=== PATIENT | male | born 1970 | race Caucasian/White ===

== ENCOUNTER 2024-11-10 16:01 | Emergency (ER) | payer BC, SELFPAY ==
--- NOTE | ~2024-11-10 | XR_ITS ---
EXAMINATION: XR toe 3rd LT min 2V DATE: 11/10/2024 16:48 INDICATION: Injury, laceration plantar phalanx TECHNIQUE: 5 images of the left toes were obtained. COMPARISON: None FINDINGS: The second toe is absent. Soft tissue swelling about the toes. No radiopaque foreign body identified. 7 mm ossific density along the lateral aspect of the head of the third metatarsal possibly due to a f racture of indeterminate age. Possible subluxation of the third metatarsophalangeal joint. Moderate narrowing of the third middle tarsophalangeal joint. IMPRESSION: There is a 7 mm ossific density along the lateral aspect of the head of the third metatarsal possibly due to a fracture of indeterminate age. Correlate for point tenderness. Possible subluxation of the third metatarsophalangeal joint. Moderate narrowing of the third middle tarsophalangeal joint. If symptoms persist or worsen, consider a CT or MRI for further assessment. Reviewed, dictated and finalized at location A. IMPRESSION: There is a 7 mm ossific density along the lateral aspect of the head of the thi rd metatarsal possibly due to a fracture of indeterminate age. Correlate for po int tenderness. Possible subluxation of the third metatarsophalangeal joint. Moderate narrowing of the third middle tarsophalangeal joint. If symptoms persist or worsen, consider a CT or MRI for further assessment.
--- OUTSIDE RECORDS SUMMARY | 2024-11-10 16:13 | XMS_ITS | Clinical Summary ---
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 01/05/2023 Active diphenhydrAMINE (Benadryl Allergy) 25 MG tablet Take 25 mg by mouth every 8 (eight) hours if needed. Active ibuprofen 800 MG tablet Take 800 mg by mouth every 8 (eight) hours if needed. Active losartan (Cozaar) 100 MG tablet Take 100 mg by mouth 1 (one) time each day. Active nebivolol (Bystolic) 20 MG tablet Take 20 mg by mouth 1 (one) time each day. Active omeprazole (PriLOSEC) [address] capsule Take 20 mg by mouth 1 (one) time each day before breakfast. Active pregabalin (Lyrica) 300 MG capsule Take 300 mg by mouth 2 (two) times a day. 07/14/2023 Active Ozempic, 0.25 or 0.5 MG/DOSE, 2 MG/3ML solution pen-injector 09/10/2023 Active Zoloft 50 MG tablet Take 50 mg by mouth 1 (one) time each day. Active DULoxetine (Cymbalta) [address] capsuleIndicati ons:Peripheral neuropathy Take 1 capsule (30 mg total) by mouth 1 (one) time each day for 30 days, THEN 2 capsules (60 mg total) 1 (one) time each day. Do not crush or chew.. 150 capsule 10/15/2023 Active EPINEPHrine (Epipen) 0.3 MG/0.3ML injection syringe Inject 1 Syringe as directed if needed for anaphylaxis. 11/20/2023 Active Active Problems Problem Noted Date Diagnosed Date Diabetes mellitus 10/15/2023 Hypertension 10/15/2023 Neuropathy 10/15/2023 Immunizations Immunization Administration Dates Next Due TD (adult), 2 Lf tetanus tox oid, preservative free, adsorbed 09/25/2022 Social History Tobacco Use Types Packs/Day Years Used Date Smoking Tobacco: Former Cigarettes Smokeless Tobacco: Never Tobacco Cessation:Counseling Given: Not Answered Alcohol Use Standard Drinks/Week Comments Not Currently 0 (1 standard drink = 0.6 oz pur e alcohol) Sex and Gender Information Value Date Recorded Sex Assigned at Not on file Legal Sex Male 3:45 PM EDT Gender Identity Not on file Sexual Orientation Straight 10/14/2023 6 :00 PM EDT Last Filed Vital Signs Vital Sign Reading Time Taken Comments Blood Pressure 130/80 10/15/2023 1:44 PM EDT Pulse 107 10/15/2023 1:44 PM EDT Temperature - - Respiratory Rate - - Oxygen Saturation - - Inhaled Oxygen Concentration - - Weight 152 kg (335 lb) 10/15/2023 1:44 PM EDT Height 190.5 cm (6' 3) 10/15/2023 1:44 PM EDT Body Mass Index 41.87 10/15/2023 1:44 PM EDT Plan of Treatment Health Maintenance Due Date Last Done Comments CT Colonography 1972 Colonoscopy 1972 Colorectal Cancer Screening 1972 Diabetes: Hemoglobin A1C 1972 FIT-DNA (Cologuard) 1972 FIT 1972 FOBT 1972 HIV Screening 1972 Hepatitis C Screening 1972 Lipid Panel 1972 Sigmoidoscopy 1972 MMR Vaccines (1 of 1 - Standard series) 02/24/1973 Diabetes: Foot Exam 02/24/1982 Diabetes: Retinopathy Screening 02/24/1982 Hepatitis B Screening 02/24/1990 Diabetes: Urine Protein Screening 02/24/1991 Hepatitis B Vaccines (1 of 3 - 19+ 3-dose series) 02/24/1991 Pneumococcal Vaccine: 50+ Years (1 of 2 - PCV) 02/24/1991 Zoster Vaccines (1 of 2) 02/24/2022 DTaP/Tdap/Td Vaccines (1 - Tdap) 09/26/2022 09/25/2022 COVID-19 Vaccine (3 - 2023-2 5 season) 2023 08/28/2020, 07/31/2020 Depression Risk Screening 03/26/2024 SDOH Screening 03/26/2024 Influenza Vaccine (#1) 2024 HIB Vaccines Aged Out No longer eligi ble based on patient's age to complete this topic HPV Vaccines Aged Out No longer eligi ble based on patient's age to complete this topic Hepatitis A Vaccines Aged Out No long er eligible based on patient's age to complete this topic IPV Vaccines Aged Out No longer eligi ble based on patient's age to complete this topic Meningococcal B Vaccine Aged Out No l onger eligible based on patient's age to complete this topic Meningococcal Vaccine Aged Out No zenaida mukul eligible based on patient's age to complete this topic Rotavirus Vaccines Aged Out No longer eligible based on patient's age to complete this topic Insurance ANTHEM Care Teams Distillery Worker General Relationship Specialty Start Date End Date Melody Dey SENIOR BI ARCHITECT [address] [place] [address] [place] [phone] PCP - General 07/02/23
--- OUTSIDE RECORDS SUMMARY | 2024-11-10 16:13 | XMS_ITS | Patient Health Record ---
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 Melody Myers Primary Care Provider Unavailabl e MELODY MYERS Unavailable [phone] HERNANDEZANGELINE Unavailable [phone] June Unavailable [phone] Allergies No Known Allergies Results Component Value Reference Range Notes PSA, Screen Reviewed date:05/02/2024 03:32:28 PM Interpretation: Performing Lab:[facility], L Notes/Report: PSA,SCREEN 0.9 0-4.0 ng/mL [facility] Test Reviewed date:05/05/2024 04:12:17 PM Interpretation: Performing Lab:[facility], L Notes/Report: SYPHILIS TREP AB W/RFLX TO RPR TITER TC: [id number] [place] TEST SYPHILIS TREP AB W/R [facility] LAB TEST NAME RESULT SEE SEPARATE REPORT Microalbumin-Random Urine Reviewed date:05/05/2024 04:26:32 PM Interpretation: Performing Lab:[facility], L Notes/Report: Has Specimen Been Collected Y MICROALBUMIN,URINE 4.7 0-1.9 mg/dL CREATININE,URINE 208.5 MICROALBUMIN/CREATININE RATIO 23 0-30 ug/mg Lipid Profile Reviewed date:05/02/2024 02:47:36 PM Interpretation: Performing Lab:[facility], L Notes/Report: CHOLESTEROL 163 100-199 mg/dL Is the Patient Fasting YES TRIGLYCERIDES 93 0-149 mg/dL Is the Patient Fasting YES DIRECT HDL CHOLESTEROL 31 >39 mg/dL Is th e Patient Fasting YES CALCULATED LDL CHOLESTEROL 113 0-99 mg/dL VLDL CHOLESTEROL 19 5-40 mg/dL The above lipid reference ranges are based on the most recently published guidelines from the National Heart, Lung, and Blood [place] (NHLBI). Hemoglobin A1C Reviewed date:05/05/2024 01:15:58 PM Interpretation: Performing Lab:[facility], L Notes/Report: HEMOGLOBIN A1C 5.7 4.0-6.0 % CMP Reviewed date:05/02/2024 02:47:48 PM Interpretation: Performing Lab:[facility], L Notes/Report: GLUCOSE 90 74-118 mg/dL BLOOD UREA NITROGEN 10 8-26 mg/dL CREATININE 0.74 0.60-1.30 mg/dL ESTIMATED GFR > 60 SODIUM 139 136-144 mmol/L POTASSIUM 4.1 3.6-5.1 mmol/L CHLORIDE 104 96-110 mmol/L CARBON DIOXIDE 27 22-32 mmol/L ANION GAP 8 2-11 mmol/L CALCIUM 9.0 8.4-10.3 mg/dL TOTAL PROTEIN 7.4 6.4-8.3 g/dL ALBUMIN 4.4 3.5-5.0 g/dL BILIRUBIN,TOTAL 0.8 0.3-1.0 mg/dL ASPARTATE AMINOTRANSFERASE/AST 16 13-39 U/L ALANINE AMINOTRANSFERASE/ALT 24 7-52 IU/L ALKALINE PHOSPHATASE 100 34-104 IU/L CBC w/ diff Reviewed date:05/02/2024 02:48:00 PM Interpretation: Performing Lab:[facility], L Notes/Report: WHITE BLOOD COUNT 8.20 4.30-10.30 THOU/uL RED BLOOD COUNT 4.81 4.04-6.13 MILL/uL HEMOGLOBIN 14.6 14.0-18.0 g/dL HEMATOCRIT 41.6 42-52 % MEAN CORPUSCULAR VOLUME 86.6 81-99 fL MEAN CORPUSCULAR HEMOGLOBIN 30.3 27.0-31.2 pg MEAN CORPUSCULAR HGB CONC 35.0 31.8-35.4 g/dL RED CELL DISTRIBUTION WIDTH 15.1 11.6-14.8 % PLATELET COUNT 288 142-424 THOU/uL MEAN PLATELET VOLUME 8.9 5.0-10.0 fL NEUTROPHILS % 62.7 37.0-80.0 % LYMPH % 28.6 10.0-50.0 % MONO % 6.4 0.0-12.0 % EOS % 1.8 0.0-7.0 % BASO % 0.5 0.0-2.5 % NEUTROPHILS #, ABS. 5.20 1.60-6.90 THOU/uL LYMPH #, ABS. 2.40 0.60-3.40 THOU/uL MONO #, ABS. 0.50 0.00-0.90 THOU/uL EOS #, ABS. 0.10 0.00-0.70 THOU/uL BASO #, ABS. 0.00 0.00-0.20 THOU/uL RAD Toe Right 2nd Digit 7366 0 Reviewed date:12/27/2023 08:19:58 AM Interpretation: Performing Lab: Notes/Report: [address] [address] NAME: ELLY Bree HERNANDEZ DATE: 12/17/23 PHYSICIAN: ANGELINE HERNANDEZ MD [facility] [id number] DATE OF : 1970 ACCT NUMBER: [id number] PT LOCATION: [facility] DATE OF SERVICE: 12/17/23 RIGHT SECOND TOE - 12-17-2023 COMPARISON: 10-18-2023 INDICATION: Open wound to right second digit. Prior amputation at the level of the first proximal phalanx. TECHNIQUE: Dedicated three views of the right second toe. FINDINGS: There is diffuse soft tissue swelling. There is no acute fracture or dislocation or destructive change. There is an old amputation at the level of the first proximal phalanx which is smooth. IMPRESSION: 1. Soft tissue swelling of the second toe without underlying acute or destructive osseous lesion. 2. Old amputation at the level of the first proximal phalanx. MRI could [place] [id number] <Electronically signed by VANE BRUNNER > VANE BRUNNER , Radiologist Signed: 12/18/23 0841 Reason For Referral Reason 53yo male with signi ficant neuropathy. Please eval for nail care. Has had L 2nd toe amputation, R partial hallux amputation, and currently an open wound on R 2nd toe. May need fitted for special toe box and nail care, please. Diagnosis 1 Type 2 diabetes deanna itus without complication, without long-term current use of insulin (E11.9) Diagnosis 2 Obesity, Class III, BMI 40-49.9 (morbid obesity) (E66.01) Diagnosis 3 Other polyneuropathy (G62.89) Diagnosis 4 Toe osteomyelitis (M 86.9) Diagnosis 5 Peripheral polyneuro heber (G62.9) Referral Organization [facility] Referring Provider First Name ANGELINE Referring Provider Last Name MARY Referring Provider Speciality General Lou luisa Referred Provider Kashif Kat Referred Provider Specialty Podiatry Referral Priority Routine Reason Nov 18 or Diagnosis 1 Type 2 diabetes deanna itus without complication, without long-term current use of insulin (E11.9) Referral Organization [facility] Referring Provider First Name MELODY Referring Provider Last Name LUCIA Referring Provider Speciality Nurse Nabeel caldwell Referred Provider Beny Mitchell Referred Provider Specialty Endocrinolog y Referral Priority Routine Medications Medication SIG (Take, Route, Frequency, Duration) Notes Start Date End Date Status predniSONE 5 MG 1 tablet twice daily x 3 days then 1 tablet daily x 4 days Orally as directed; Duration: 7 days 09/25/2024 Active Ibuprofen 800 MG 1 tablet with food or milk as needed Orally Three times a day; Duration: 90 days 08/02/2020 Active levoFLOXacin 750 MG 1 tablet Orally Once a day; Duration: 7 days 12/03/2023 Not-Taking Nebivolol HCl 20 MG 1 tablet Orally Once a day; Duration: 90 days Active Sertraline HCl 50 MG TAKE 1 TABLET BY MOUTH ONCE DAILY MAY CAUSE DROWSINESS Orally Once a day; Duration: 90 days prn per patient Active Omeprazole 20 MG TAKE 1 CAPSULE ONCE DAILY FOR STOMACH; Duration: 30 Active Collagenase 250 UNIT/GM 1 application Externally Twice a day; Duration: 30 days 05/07/2023 Not-Taking levoFLOXacin 750 MG 1 tablet Orally Once a day Not-Taking HYDROcodone-Acetaminop hen 5-325 MG 1 tablet as needed Orally every 6 hrs Not-Taking Ozempic (0.25 or 0.5 MG/DOSE) 2 MG/3ML INJECT 0.5 MG UNDER THE SKIN ONCE WEEKLY subcut weekly; Duration: 28 days Active Linezolid 600 MG 1 tablet Orally every 12 hrs; Duration: 10 days 04/12/2023 Not-Taking rifAMPin 300 MG as directed Orally Twice a day; Duration: 72 days 04/30/2023 Not-Taking Allopurinol 100 MG 1 tab Orally as needed; Duration: 30 days Not-Taking Vitamin B Complex - 1 tablet Orally once daily OTC 05/12/2021 Not-Taking Victoza 18 MG/3ML 0.6mg Subcutaneous daily; Duration: 30 days 04/09/2023 Not-Taking Pregabalin 300 MG 1 capsule Orally two to three times daily as needed; Duration: 30 days Dennis mad, CS in place 09/08/2024 Active Linezolid 600 MG 1 tablet Orally every 12 hrs; Duration: 72 days 04/30/2023 Not-Taking Dakins (full strength) 0.5 % 1 application Externally Twice a day; Duration: 30 days 04/30/2023 Not-Taking amLODIPine Besylate 10 MG 1 tablet Orally Once a day; Duration: 90 days Active Cyanocobalamin 1000 MCG 1 tablet Orally Once a day; Duration: 30 day(s) Active DHEA 50 MG 2 tablets Orally once daily OTC 05/12/2021 Not-Taking Benadryl Allergy 25 MG 1 capsule at bedtime as needed Orally Once a day Active Berberine 500mg 1 tab Orally twice a day 06/16/2022 Not-Taking Losartan Potassium 100 MG TAKE 1 TABLET EVERY DAY FOR BLOOD PRESSURE Orally Once a day; Duration: 90 days Active Promethazine HCl 25 MG 1 tablet as neede d Orally every 12 hrs; Duration: 15 days 05/26/2022 Active Cholecalciferol 2000 UNIT 1 capsule Orally Once a day; Duration: 30 day(s) Not-Taking Immunizations Vaccine Route Administration Date Status Comme nts Td (adult), absorbed IM Intramuscular 09/25/2022 Administe red Problems Problem Type SNOMED Code ICD Code Onset Dates Problem Status W/U Status Risk Notes Problem Hypertension (64321775) Hypertension (I10) Active confirmed Problem Peripheral vascular disease (596233258) PVD (Peripheral Vascular Disease) (I73.9) Active confirmed Problem Gastroesophageal reflux disease (655305463) GERD (K21.9) Active confirmed Problem Unstageable pressure injury of right heel (disorder) (14980497871804816 ) Pressure ulcer of right heel, unstageable (L89.610) Active confirmed Problem Gout (42715360) Gout (M10.9) Active confirmed Problem Traumatic amputation of toe OR toes without complication (32124734) 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 Pts AHI 12.6 with mild ADALI, pt states he never got it and really doesnt want to use it as is sleeping fine and feels good. 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) Active confirmed Problem Seasonal allergic rhinitis (187339555) Seasonal allergic rhinitis, unspecified trigger (J30.2) Active confirmed Problem Food allergy (939401299) Allergy to alpha-gal (Z91.018) Active confirmed Problem Body mass index 40+ - morbidly obese (945122185) BMI 40.0-44.9, adult (Z68.41) Active confirmed Problem Polyneuropathy (14759941) Other polyneuropathy (G62.89) Active confirmed Problem Neuropathic pain (finding) (403697157) Neuropathic pain of both feet (G57.93) Active confirmed Problem Inflammatory and toxic neuropathy (314047234) Peripheral polyneuropathy (G62.9) Active confirmed Problem Osteomyelitis (04571504) Osteomyelitis of left foot, unspecified type (M86.9) Active confirmed Problem Osteomyelitis (05355975) Toe osteomyelitis (M86.9) Active confirmed Problem Non-healing open wound of right heel, subsequent encounter (S91.301D) Active confirmed Vital Signs Heart Rate 95 /min 05/02/2024 13 lb gain Temperature 98.6 degrees Fahrenheit 05/02/2024 13 l b gain Respiratory Rate 20 /min 05/02/2024 13 lb gain Blood pressure diastolic 80 mm Hg 05/02/2024 13 lb gain Oximetry 98 % 05/02/2024 13 lb gain Height 75 in 05/02/2024 13 lb gain Blood pressure systolic 130 mm Hg 05/02/2024 13 l b gain Weight 338.4 lbs 05/02/2024 13 lb gain BMI 42.29 kg/m2 05/02/2024 13 lb gain Encounters Encounter Location Date Provider Diagnosis [facility] [address] [place] [address] [place] [address] 11/20/2023 ANGELINE HERNANDEZ Open wound of right foot, subsequent encounter S91.301D [facility] [address] [place] [address] 12/03/2023 ANGELINE HERNANDEZ Encounter for wound re-check Z51.89 ; Unspecified open wound, right foot, subsequent encounter S91.301D and Cellulitis of second toe of right foot L03.031 [facility] [address] [place] [address] 12/17/2023 ANGELINE HERNANDEZ Encounter for wound re-check Z51.89 ; Wound of right foot S91.301A and Cellulitis of toe of right foot L03.031 [facility] [address] [place] [address] 12/31/2023 ANGELINE HERNANDEZ Encounter for wound re-check Z51.89 [facility] [address] [place] [address] 05/02/[address] [facility] Type 2 diabetes mellitus without complication, without long-term current use of insulin E11.9 ; Hypertension I10 ; Peripheral polyneuropathy G62.9 ; Screening PSA (prostate specific antigen) Z12.5 ; Neuropathic pain of both feet G57.93 and Positive RPR test A53.0 [facility] [address] [place] [address] 11/19/[address] [facility] [address] [place] [address] 11/20/[address] [facility] [address] [place] [address] 12/04/[address] [facility] [address] [place] [address] 12/05/2023 [facility] [address] [place] [address] 12/28/2023June Neuropathic pain of both feet G57.93 [facility] [address] [place] [address] 04/25/[address] [facility] Neuropathic pain of both feet G57.93 [facility] [address] [place] [address] 09/08/[address] [facility] Neuropathic pain of both feet G57.93 [facility] [address] [place] [address] 09/24/[address] [facility] [address] [place] [address] 10/23/[address] [facility] Type 2 diabetes mellitus without complication, without long-term current use of insulin E11.9 [facility] [address] [place] [address] 10/23/[address] [facility] Type 2 diabetes mellitus without complication, without long-term current use of insulin E11.9 Assessments Encounter Date Diagnosis (ICD Code) Assessment Notes Treatment Notes Treatment Clinical Notes Section Notes 11/20/2023 Open wound of right foot, subsequent encounter (ICD-10 - S91.301D) Wounds now appear manageable with local wound care. 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 If he is able to do this, and can wear compression socks that also do not apply pressure to the wounds on his toes, and if he can restrict any weight bearing of his R foot to the heel and midfoot only then I think it will be safe for him to return to work. He should be able to wear safety shoes provided a wide toe box is present on said footwear. He also should be able to provide the daily wound care to his open areas and also possibly throughout the day if excess moisture is noted or if the bandage/wound dressing were to become dislodged. From my standpoint, with these measures, he can return to work next week. 12/03/2023 Unspecified open wound, right foot, subsequent encounter (ICD-10 - S91.301D) Continue HF blue treatment to R great toe and R 2nd toe. F/U 2 weeks. He should avoid clipping his own toenails. I suspect his neuropathy results in more aggressive tissue manipulation than needed, resulting in tissue trauma. Continue edema control. 12/03/2023 Encounter for wound re-check (ICD-10 - Z51.89) 12/17/2023 Encounter for wound re-check (ICD-10 - Z51.89) 12/17/2023 Wound of right foot (ICD-10 - S91.301A) 12/28/2023 Neuropathic pain of both feet (ICD-10 - G57.93) 12/31/2023 Encounter for wound re-check (ICD-10 - Z51.89) Leaving wound wrap from podiatry in place. Advised patient to continue on the same wound care regiment. Patient is to follow up with podiatry on Sunday01-07-2024, advised patient to keep that appointment and if concerned about appearance of wound at that point, RTO. 04/25/2024 Neuropathic pain of both feet (ICD-10 - G57.93) 05/02/2024 Type 2 diabetes mellitus without complication, without long-term current use of insulin (ICD-10 - E11.9) 09/08/2024 Neuropathic pain of both feet (ICD-10 - G57.93) 10/23/2024 Type 2 diabetes mellitus without complication, without long-term current use of insulin (ICD-10 - E11.9) 10/23/2024 Type 2 diabetes mellitus without complication, without long-term current use of insulin (ICD-10 - E11.9) 05/02/2024 Hypertension (ICD-10 - I10) 12/17/2023 Cellulitis of toe of right foot (ICD-10 - L03.031) Continue Levaquin. Has an appt with podiatry (Dr. Kat) two weeks from today. 12/03/2023 Cellulitis of second toe of right foot (ICD-10 - L03.031) Will eRx Levaquin x 7 days again to see if his cellulitis responds. 05/02/2024 Peripheral polyneuropathy (ICD-10 - G62.9) 05/02/2024 Screening PSA (prostate specific antigen) (ICD-10 - Z12.5) 05/02/2024 Neuropathic pain of both feet (ICD-10 - G57.93) Neuropathy pain not at goal of 4 will increase lyrica dosing to tid and assess response 05/02/2024 Positive RPR test (ICD-10 - A53.0) Will check Treponemal antibodies and records from Neuro called for Plan Of Treatment Pending Test Test Name Order Date CMP 10/23/2024 Hemoglobin A1C 10/23/2024 Lipid Profile 10/23/2024 [place] [id number] 09/25/2022 Next Appt Details Provider Name:MELODY MYERS, 12/12/2024 08:00:00 AM, [address], [place], [address], Insurance Providers Payer Name Payer Address Payer Phone Subscriber Number Group Number Insured Name Patient Relationship to Insured Coverage Start Date Coverage End Date [facility] [address] [place], [place] [id number] ELLY NG Self - patient is the insured Medications Administered Medication Instructions Date of Administration Dosage Notes DEPO-Medrol 12/10/2020 1 mL teva dexAMETHasone Sodium Phosphate 12/10/2020 1 mL FK cefTRIAXone Sodium 09/25/2022 1 g Medical (General) History Medical History History ICD Code Diabetes mellitus, new onset E11.9 Hypertension I10 Allergy to alpha-gal Z91.018 Obstructive sleep apnea (adult) (pediatr ic) G47.33 Dependence on other enabling machines an d devices Z99.89 DDD (degenerative disc disease), lumbar M51.36 Neuropathic pain of both feet G57.93 Adult BMI 45.0-49.9 kg/sq m Z68.42 GERD K21.9 Anxiety F41.9 Gout M10.9 Vitamin D deficiency E55.9 Seasonal allergic rhinitis, unspecified trigger J30.2 BMI 40.0-44.9, adult Z68.41 Peripheral polyneuropathy G62.9 PVD (Peripheral Vascular Disease) I73.9 Impaired fasting glucose R73.01 Pressure ulcer of right heel, unstageabl e L89.610 Osteomyelitis of left foot, unspecified type M86.9 Surgical History Surgery Date(Month/Year) cholecystectomy Colonoscopy w/ polypectomy 07/10/2022 Right heel debridement with partial ampu tation left 2nd toe 04/18/23 revision of amputation of le ft 2nd toe and excisional debridement right heel-Dr. Hernandez 06/25/23 partial amputation right hallux 10/19/23 Nerve cutting of first toe on right foot 12/31/23 Hospitalization History Reason Date(Month/Year) [facility] ER- Right heel wound 03/25/23
--- OUTSIDE RECORDS SUMMARY | 2024-11-10 16:13 | XMS_ITS | Clinical Summary ---
[facility] Address [address] [place] [address] Care Team Providers Care Clinical Medical Transcriptionist Name Role Phone Unavailable Primary Care Provider Unavailabl e Social History Tobacco Use Types Packs/Day Years Used Date Smoking Tobacco: Never Assessed Abuse Screen Answer Date Recorded Unsafe at Home or Work/School Not on file Feels Threatened by Someone? Not on file 10/2022 Does Anyone Keep You from Co ntacting Others or Doint Things Outside the Home? Not on file 12/31/2022 Physical Sign of Abuse Present Not on file 1 Housing Stability Answer Date Recorded Current Living Arrangements Not on file 10/2022 Potentially Unsafe Housing Conditions Not on johnathan e 12/31/2022 Family and Community Support Answer Saud e Recorded Help with Day-to-Day Activities Not on file 12/31/2022 Lonely or Isolated Not on file 12/31/2022 Employment Answer Date Recorded Do you want help finding or keeping work or a sarai b? Not on file 12/31/2022 Disabilities Answer Date Recorded Concentrating, Remembering, or Making Decisions Difficulty Not on file 12/31/2022 Doing Errands Independently Difficulty Not on fi le 12/31/2022 Education Answer Date Recorded Help with school or training? Not on file Preferred Language Not on file 12/31/2022 Sex and Gender Information Value Date Recorded Sex Assigned at Not on file Legal Sex Male 6:26 PM EDT Gender Identity Not on file Sexual Orientation Not on file Plan of Treatment Health Maintenance Due Date Last Done Comments ANNUAL PHYSICAL 1970 HEPATITIS C SCREENING 1970 TDAP/TD VACCINES (1 - Tdap) 02/24/1991 COLOGUARD 02/24/2017 COLON CANCER SCREENING 5 YEAR SIGMOIDOSCOPY 02/24/2017 COLONOSCOPY 02/24/2017 COLORECTAL CANCER SCREENING 02/24/2017 CT COLONOGRAPHY 02/24/2017 FECAL OCCULT BLOOD TEST 02/24/2017 FIT Testing (1 year) 02/24/2017 Pneumococcal Vaccine 50+ (1 of 1 - PCV) 02/24/2022 ZOSTER VACCINE (1 of 2) 02/24/2022 COVID-19 Vaccine (1 - 2023- season) 2023 INFLUENZA VACCINE 12/24/2024
--- OUTSIDE RECORDS SUMMARY | 2024-11-10 16:13 | XMS_ITS ---
Author Organization [facility] Address [address] [place], [place] [id number] Care Team Providers Care Resilient Tile Installer Name Role Phone Melody Myers Primary Care Provider Unavailjono herman LUCIA MELODY Unavailable [phone] REASON FOR VISIT FOLLOW UP Encounters Encounter Location Date Provider Diagnosis [facility] [address] [place] [address] 10/02/2024 MELODY MYERS Plan Of Treatment Next Appt Details Provider Name:MELODY DONY MYERS, 12/12/2024 08:00:00 AM, [address], [place], [address], Progress Notes * ELLY NG DDOB: [birth year] (54 yo M)Acc No.[id number]:10/02/2024 Patient: Jonah ELLY SALGADO Provider: Jonah Myers APRN :1970 A ge:54 Y S ex:Male Date:10/02/2024 Address:[address] [id number] Pcp:Melody Myers Subjective: * Chief Complaints: * 1 . FOLLOW UP. * Medical History: Objective: * Vitals: Assessment: Plan: * Treatment: * Billing Information: * Visit Code: * Procedure Codes: * Electronic signature of JOSE F MYERS APRN on 11/10/2024 at 04:13 PM CDT Sign off status: Pending * Provider: Jonah Myers APRN Date: 0 10/02/2024 Generated for Jennifer wellington/Larry/Jamil on: 0 11/10/2024 04:13 PM CDT
[2024-11-10 16:14] VITALS: BP 186/106; PULSE 113; RESP 20; TEMP 36.6; O2SAT 99
--- NOTE | 2024-11-10 16:40 | ED.EXTPRO ---
HPI - Extremity Problem General Chief complaint: Extremity Problem,Nontraumatic Stated complaint: left toe pain Time Seen by Provider: 11/10/24 16:15 Source: patient and RN notes reviewed Mode of arrival: ambulatory Limitations: no limitations History of Present Illness HPI Narrative: 54-year-old male presents [facility] complaining to left toe injury. Patient said was get out of bed to turn the light when a high side tripped on his right leg and fell and on his right side. Patient denies hitting his head or any loss of consciousness. Denies any neck pain or back pain. 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 Patient denies any other injuries. 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 Patient noticed a wound to his left 3rd toe call this foot surgeon who said he will cm on Sunday back at home where he lives in [place] to not have stitches into had the wound cleaned and placed on antibiotics. He says his tetanus is up-to-date. Related Data Home Medications ?Medication ?Instructions ?Recorded ?Confirmed ?Last Taken ?Type nebivolol .ROUTE 11/10/24 Unknown History pregabalin 300 mg capsule mg 11/10/24 Unknown History semaglutide 0.25 mg or 0.5 mg (2 mg subcut 11/10/24 Unknown History mg/3 mL) subcutaneous pen injector (Ozempic) Allergies Allergy/AdvReac Type Severity Reaction Status Date / Time No Known Allergies Allergy Verified 11/10/24 16:23 Review of Systems Review of Systems: CONSTITUTIONAL: Denies fever, chills, or sweats. EYES: Denies visual changes, redness, or discharge. ENT: Denies rhinorrhea, congestion, sore throat, or otalgia. CARDIOVASCULAR: Denies chest pain, palpitations, or edema. RESPIRATORY: Denies cough or dyspnea. GASTROINTESTINAL: Denies abdominal pain, nausea, vomiting, or diarrhea. GENITOURINARY: Denies dysuria or hematuria. SKIN: Denies rash or itching. Positive for wound. MUSCULOSKELETAL: Denies back pain, joint pain, or myalgia. NEUROLOGIC: Denies headache, numbness, or weakness. PSYCHIATRIC: Denies anxiety or depression. All other systems reviewed are negative, except as documented in HPI. PMFSH Comments At the time of my signature, I reviewed and agree with the nursing past medical, surgical, social, and family history. There is no relevant family history pertinent to the patient complaint. Exam Narrative: GENERAL: This is a well-nourished, well-developed adult, in no apparent distress. They are non ill-appearing, nontoxic appearing. HEAD: normocephalic, atraumatic. EYES: Sclera clear/white. Conjunctiva normal. Vision is grossly intact. Extraocular movements intact EARS: External ears normalHearing grossly intact. NOSE: External nose normal. THROAT: Mucous membranes moist, NECK: Neck supple, CARDIOVASCULAR: Regular rate and rhythm RESPIRATORY: Respiratory rate normal, respiratory effort nonlabored, no respiratory distress SKIN: warm, Dry, intact with no suspicious lesions or rash, good texture and turgor. NEURO: awake, alert, and oriented to person, place and time. There were no obvious focal neurologic abnormalities. EXTREMITIES: Left foot: No obvious deformity, bruising, redness, swelling, or injury. Missing left 2nd digit. Plantar surface of the 3rd digit reveals a laceration near the DIP joint. No surrounding erythema or swelling. No Obvious deformity. Laceration approximates well. It is macerated near the PIP. Capillary refill less than 2 seconds. Neurovascular status intact distal injury. Patient able to wiggle his toes. Course Course Emergency Course: Portions of this record may have been created with voice recognition software Level of Care: Express Care Visit Vital Signs Vital signs: Vital Signs Temperature 97.8 F 11/10/24 16:14 Pulse Rate 113 H 11/10/24 16:14 Respiratory Rate 20 11/10/24 16:14 Blood Pressure 186/106 H 11/10/24 16:14 Pulse Oximetry 99 11/10/24 16:14 Oxygen Delivery Room Air 11/10/24 16:14 Temperature 97.8 F 11/10/24 16:14 Pulse Rate 113 H 11/10/24 16:14 Respiratory Rate 20 11/10/24 16:14 Blood Pressure 186/106 H 11/10/24 16:14 Pulse Oximetry 99 11/10/24 16:14 Oxygen Delivery Room Air 11/10/24 16:14 Reviewed MDM - Extremity (Nontraumatic) MDM Narrative Medical decision making narrative: X-ray of the 3rd digit of left toe shows possible old fracture of and entered determined age the head of the 3rd metatarsal, possible subluxation of the 3rd MCP joint, and moderate narrowing of the 3rd MCP joint. No fracture to the phalanx. Patient has no point tenderness to the 3rd digit and over 3rd metacarpal. Normal range of motion of the toe. Low suspicion for fracture. Patient has a follow-up appoint with his foot surgeon on Sunday this week. Will Burn patient a disc. Patient is from [place] and is returning home tonight to see his surgeon on Sunday. Patient was told not to get sutures placed in the wound itis foot surgeon. Patient adamantly refusing to have a laceration repair and refusing sutures. Will give patient a dose of Ancef here and send him home on cephalexin him follow-up with his foot surgeon on Sunday. wound extensively cleansed by nursing staff.. Patient given postop shoe and a bulky dressing was placed on the patient's 3rd digit. Laceration approximates well in normal anatomical position of the toe. Discussed physical exam findings. Advised supportive measures and signs/symptoms to go to the ER. Pt is appropriate for outpt treatment and f/u. Differential Diagnosis Differential diagnosis: Likely other ( laceration, open fracture, avulsion, wound) Imaging Data Radiologist's impression: ITS Impressions Toe X-Ray 11/10/24 16:49 IMPRESSION: There is a 7 mm ossific density along the lateral aspect of the head of the third metatarsal possibly due to a fracture of indeterminate age. Correlate for point tenderness. Possible subluxation of the third metatarsophalangeal joint. Moderate narrowing of the third middle tarsophalangeal joint. If symptoms persist or worsen, consider a CT or MRI for further assessment. Critical Care Time Critical Care Time Critical Care Time: No Discharge Plan Discharge Clinical Impression: Laceration of toe Qualifiers: Encounter type: initial encounter Toe: lesser toe Damage to nail status: without damage Foreign body presence: without foreign body Laterality: left Qualified Code(s): S91.115A - Laceration without foreign body of left lesser toe(s) without damage to nail, initial encounter Fall Qualifiers: Encounter type: initial encounter Qualified Code(s): W19.XXXA - Unspecified fall, initial encounter Patient Disposition: Home Condition: Stable Instructions: Antibiotic Form, Laceration (ED) Additional Instructions: The x-ray of your 3rd left toes negative for a fracture, old probable fracture was noted to your 3rd metacarpal bone with a possible subluxation of your 3rd metacarpal. Please follow-up with you foot surgeon this Sunday as scheduled. Your given a shot of Ancef today. Take the cephalexin as directed. Your wound was cleansed and a bulky dressing was placed on a today. Leave the dressing on until you see your foot surgeon on Sunday. Wear the postop shoe your left foot. You may take Tylenol as needed for pain. Follow the instructions on the bottle. If you developed worsening redness, swelling and pain, fevers, or any serious concerns please go to the ER immediately. Patient Language: Nauruan Prescriptions: New cephalexin 500 mg capsule 500 mg PO Q6H 5 Days Qty: 20 0RF No Action pregabalin 300 mg capsule Ozempic 0.25 mg or 0.5 mg (2 mg/3 mL) pen injector SUBCUT nebivolol [Bystolic] .ROUTE Follow-up/Referrals: UNKNOWN,DOCTOR [Primary Care Provider] - Time of Disposition: 17:22
== END 2024-11-10 18:27 | disposition home or self-care (01) ==
DX: S91.115A Laceration without foreign body of left lesser toe(s) without damage to nail, initial encounter (principal); W18.30XA Fall on same level, unspecified, initial encounter; Z79.85 Long-term (current) use of injectable non-insulin antidiabetic drugs
CPT/HCPCS: 73660; 96372; 99203; G0463; J0690